=== PATIENT | male | born 1935 | race Caucasian/White ===

== ENCOUNTER → 2019-11-22 17:27 | Outpatient (BNVA) | payer MEDICARE, SELFPAY | PROVIDERS: Family Provider Nurse Practitioner Family; PCP Nurse Practitioner Family; Visit Provider Nurse Practitioner Family | DX: R05 Cough (principal); R35.0 Frequency of micturition | CPT/HCPCS: 71046; 81003 ==

== ENCOUNTER 2021-07-02 17:49 | Emergency (ER) | payer MEDICARE, SELFPAY ==
[2021-07-02 18:05] VITALS: BP 106/70; PULSE 77; RESP 16; TEMP 36.8; O2SAT 95; BMI 22.1
[2021-07-02 18:12] LABS: Glucose Point of Care 141 mg/dL (70-110)
--- NOTE | 2021-07-02 18:55 | ED_ITS ---
HPI - Male Genitourinary General: Chief complaint: Urogenital-Male Stated complaint: HIGH CLAUDETTE P/UC Time Seen by Provider: 07/02/21 18:55 History of Present Illness: HPI Narrative: Mr. Gan is an 86-year-old gentleman with significant past medical history of permanent A. fib on anticoagulation and dementia who presents emergency department due to mental status change. Symptom onset was approximately 2 weeks ago and gradual however more noticeable over the past 3 to 4 days. He mainly has been wandering more and more confused from his baseline. His urine has been variable, he has had low-grade fever, and a episode of watery diarrhea. He denies abdominal pain. History is supplemented by daughter at bedside. He was seen in clinic today and they noted that his urine ketones were elevated, he does not avoid to check blood sugar at home as his meter is broken. History is otherwise limited by patient's baseline mental status. History is provided by daughter at bedside. Review of Systems General: Reports: ROS unobtainable due to mental status PFSH ED PFSH: Medical History BPH (benign prostatic hyperplasia) Dementia Family History Other No pertinent family history Social History Smoking and tobacco status: never smoked Second hand smoke exposure: No Alcohol intake: never Lives independently: No Household members: spouse and children Housing: House Marital status: Current occupational status: retired History of recent travel: No Current gender identity: Male Physical Exam Narrative: EXAM NARRATIVE: GENERAL/CONSTITUTIONAL - well-appearing. No acute distress. Eyes - PERRL, no conjunctival injection ENMT - Atraumatic external nose and ears. Moist mucous membranes NECK - supple. trachea midline CARDIOVASCULAR -irregularly irregular rhythm with controlled rate RESPIRATORY -clear to auscultation bilaterally. No retractions or accessory muscle use. ABDOMEN/GI - Nontender/Nondistended. MSK - Extremities without obvious deformity or tenderness to palpation SKIN - Warm, Dry NEURO - alert and pleasantly disoriented. Moves all extremities equally. PSYCH -impaired memory and cognition Course ED course: - Patient was seen and evaluated by me at bedside - Patient placed on cardiac monitors, IV access obtained - Initial evaluation notable for no acute distress, nontoxic appearance. No focal evidence of infection or other significant abnormality. - Labs notable for mild leukocytosis. Metabolic panel with elevated creatinine with unclear baseline, fluid given. Urinalysis with hematuria but no ketones and no evidence of urinary tract infection - Imaging notable for negative head and chest - Upon serial reexamination after treatment the patient was similar - Based on patient history, evaluation, labs, and imaging as interpreted the most likely cause of the patient's condition is unclear though does not require further inpatient management at this time - The results of ED evaluation were discussed with the patient's family member including prescriptions and/or symptomatic cares (if applicable) including appropriate and responsible use, followup plan, and return precautions. The patient's family member verbalized understanding and felt safe for discharge. - Patient discharged in satisfactory condition. Vital Signs: Vital signs: Vital Signs Temperature 98.3 F 07/02/21 18:05 Pulse Rate 82 07/02/21 22:45 Respiratory Rate 23 H 07/02/21 22:45 Blood Pressure 120/90 07/02/21 22:45 Pulse Oximetry 98 07/02/21 22:45 MDM - Male Medical Records: Attestation: I reviewed the patient's medical records. Lab Data: Attestation: I reviewed the patient's lab results. Labs: Lab Results 07/02/21 07/02/21 07/02/21 18:09 20:12 20:40 WBC 12.2 10^3/uL H 10 ^3/uL (4.0-10.0) RBC 4.78 10^6/uL 10^6 /uL (4.1-5.3) Hgb 14.9 g/dL g/dL (11.7-16.6) Hct 43.9 % % (42.0-52.0) MCV 91.8 fl fl (80-94) MCH 31.2 pg pg (28.0-34.0) MCHC 33.9 g/dL g/dL (30.0-36.0) RDW 13.7 % % (12.1-15.1) Plt Count 224 10^3/cmm 10^3 /cmm (130-400) MPV 10.2 fL fL (7.4-10.4) Neut % (Auto) 72.4 % % Lymph % (Auto) 16.3 % % Pacific % (Auto) 10.6 % % Eos % (Auto) 0.1 % % Baso % (Auto) 0.2 % % Neut # (Auto) 8.83 10^3/uL H 10 ^3/uL (1.8-7.7) Lymph # (Auto) 2.0 10^3/uL 10^3/ uL (0.8-4.8) Pacific # (Auto) 1.3 10^3/uL H 10^ 3/uL (0.2-0.9) Eos # (Auto) 0.0 10^3/uL 10^3/ uL (0.0-0.8) Baso # (Auto) 0.0 10^3/uL 10^3/ uL (0.0-0.1) Nucleated RBC % (a uto) 0 % % Nucleated RBCs # 0.0 /100WBC /100W BC Sodium Potassium Chloride Carbon Dioxide Anion Gap BUN Creatinine GFR Calculation Glucose POC Glucose 141 mg/dL H mg/dL (70-110) Calculated Osmolal ity Calcium Total Bilirubin AST ALT Alkaline Phosphata se Total Protein Albumin Globulin Procalcitonin TSH Urine Color Jazzy (Yellow) Urine Appearance Hazy A (CLEAR) Urine pH 5 (5-7) Ur Specific Gravit y 1.020 (1.005-1.030) Urine Protein 1+ H (Negative) Urine Glucose (UA) Norm (Normal) Urine Ketones Negative (Negative) Urine Blood 3+ H (Negative) Urine Nitrate Negative (Negative) Urine Bilirubin 1+ H (Negative) Urine Urobilinogen 1 mg/dL H mg/dL (Negative) Ur Leukocyte Rosalia ase Trace H (Negative) Urine RBC Too numerous to c nt /hpf H /hpf (0-2) Urine WBC 0-4 /hpf H /hpf (0-5) Ur Squamous Epith Cells 0-4 /hpf H /hpf (0-5) Amorphous Sediment 2+ /hpf /hpf Urine Bacteria Trace /hpf /hpf (NONE) Hyaline Casts 0-4 /lpf H /lpf 07/02/21 07/02/21 20:50 20:50 WBC RBC Hgb Hct MCV MCH MCHC RDW Plt Count MPV Neut % (Auto) Lymph % (Auto) Pacific % (Auto) Eos % (Auto) Baso % (Auto) Neut # (Auto) Lymph # (Auto) Pacific # (Auto) Eos # (Auto) Baso # (Auto) Nucleated RBC % (a uto) Nucleated RBCs # Sodium 136 mmol/L mmol/L (136-145) Potassium 4.5 mmol/L mmol/L (3.5-5.1) Chloride 97 mmol/L L mmol/ L (98-107) Carbon Dioxide 24 mmol/L mmol/L (22-29) Anion Gap 19.5 H (5-19) BUN 27 mg/dL H mg/dL (8-23) Creatinine 1.4 mg/dL H mg/dL (0.7-1.2) GFR Calculation Not Reportable Glucose 132 mg/dL H mg/dL (65-115) POC Glucose Calculated Osmolal ity 289 mOsm/kg mOsm/ kg (285-295) Calcium 9.7 mg/dL mg/dL (8.5-10.5) Total Bilirubin 0.7 mg/dL mg/dL (0.15-1.2) AST 23 U/L U/L (0-40) ALT 12 U/L U/L (0-41) Alkaline Phosphata se 62 IU/L IU/L (40-130) Total Protein 7.2 g/dL g/dL (6.6-8.7) Albumin 4.1 g/dL g/dL (3.5-5.2) Globulin 3.1 g/dL g/dL (1.3-4.6) Procalcitonin 0.10 ng/mL ng/mL (0-0.5) TSH 2.67 uIU/mL uIU/m L (0.27-4.20) Urine Color Urine Appearance Urine pH Ur Specific Gravit y Urine Protein Urine Glucose (UA) Urine Ketones Urine Blood Urine Nitrate Urine Bilirubin Urine Urobilinogen Ur Leukocyte Rosalia ase Urine RBC Urine WBC Ur Squamous Epith Cells Amorphous Sediment Urine Bacteria Hyaline Casts Discharge Plan Discharge Patient Disposition: Home Clinical Impression: Dementia, Hematuria Condition: Stable Prescriptions: No Action diltiazem HCl 60 mg capsule,extended release 12 hr 60 mg PO BID RF: 0 Eliquis 5 mg tablet 5 mg PO BID RF: 0 metformin 1,000 mg tablet 1,000 mg PO BID RF: 0 metoprolol succinate 100 mg tablet extended release 24 hr 100 mg PO DAILY RF: 0 finasteride 5 mg tablet 5 mg PO DAILY RF: 0 Discharge Orders: Discharge ED (Routine); Ordered 07/02/21 Ordered By: Gino Guevara Referrals: Noe Pisano [Primary Care Provider] - Discharge Diet: Usual diet Discharge Activity: Resume usual activity Patient Instructions: Dementia (ED) Activity Restrictions/Additional Instructions: Follow-up with your PCP. Please return the emergency department for anything that you are concerned about and feel needs emergency department evaluation. Coding Level of Care Code ED Eligibility Services Representative for Melani Moody
--- NOTE | 2021-07-02 19:24 | CTR_ITS ---
PROCEDURE INFORMATION: Exam: CT Head Without Contrast Exam date and time: 07/02/2021 7:24 PM Age: 86 years old Clinical indication: Altered mental status/memory loss; Additional info: AMS TECHNIQUE: Imaging protocol: Computed tomography of the head without contrast. Radiation optimization: All CT scans at this facility use at least one of these dose optimization techniques: automated exposure control; mA and/or kV adjustment per patient size (includes targeted exams where dose is matched to clinical indication); or iterative reconstruction. COMPARISON: No relevant prior studies available. RADIATION DOSE METRICS: Total DLP (mGy-cm): 824.41 FINDINGS: Brain: No hemorrhage. Moderate diffuse cerebral atrophy and sequela of chronic small vessel ischemic disease. No mass effect. Cerebral ventricles: No ventriculomegaly. Paranasal sinuses: Visualized sinuses are unremarkable. No fluid levels. Mastoid air cells: Visualized mastoid air cells are well aerated. Bones/joints: Unremarkable. No acute fracture. Soft tissues: Unremarkable. CT/CT head wo con* [id number] IMPRESSION: 1. No acute intracranial abnormality. 2. Moderate diffuse cerebral atrophy and sequela of chronic small vessel ischemic disease. Radiation Dose CTDIVOL = (mGy): DLP = 824.41 (mGy-cm)
--- NOTE | 2021-07-02 19:24 | XRR_ITS ---
PROCEDURE INFORMATION: Exam: XR Chest Exam date and time: 07/02/2021 7:24 PM Age: 86 years old Clinical indication: Other: Weak; Additional info: AMS TECHNIQUE: Imaging protocol: XR of the chest. Views: 1 view. COMPARISON: CR XR chest 2V* [id number] 11/22/2019 5:09 PM FINDINGS: Lungs: Unremarkable. No consolidation. Pleural spaces: Unremarkable. No pleural effusion. No pneumothorax. Heart/Mediastinum: Mild cardiomegaly. Bones/joints: Visualized osseous structures are intact. XR/XR chest 1V portable [id number] IMPRESSION: Mild cardiomegaly. Lungs are clear. Radiation Dose CTDIVOL = (mGy): DLP = (mGy-cm)
[2021-07-02 20:23] LABS: Basophils % 0.2 %; Eosinophils % 0.1 %; Hematocrit 43.9 % (42.0-52.0); Hemoglobin 14.9 g/dL (11.7-16.6); Lymphocytes % 16.3 %; Mean Corpuscular HGB Conc 33.9 g/dL (30.0-36.0); Mean Corpuscular Hemoglobin 31.2 pg (28.0-34.0); Mean Corpuscular Volume 91.8 fl (80-94); Mean Platelet Volume 10.2 fL (7.4-10.4); Monocytes # 1.3 10^3/uL (0.2-0.9); Monocytes % 10.6 %; Neutrophils # 8.83 10^3/uL (1.8-7.7); Neutrophils % 72.4 %; Nucleated Red Blood Cells % 0 %; Platelet Count 224 10^3/cmm (130-400); Red Blood Count 4.78 10^6/uL (4.1-5.3); Red Cell Distribution Width 13.7 % (12.1-15.1); White Blood Count 12.2 10^3/uL (4.0-10.0)
[2021-07-02 20:49] VITALS: BP 183/93; PULSE 112; RESP 18; O2SAT 98
[2021-07-02 21:07] LABS: Add Urine Culture? Yes; Add Urine Microscopic? YES; Amorphous Sediment Urine 2+ /hpf; Bacteria Urine TRACE /hpf; Bilirubin Urine 1+ (Negative); Blood Urine 3+ (Negative); Glucose Urine UA Norm (Normal); Hyaline Casts Urine 0-4 /lpf; Ketones Urine Negative (Negative); Leukocyte Esterase Urine Trace (Negative); Nitrate Urine Negative (Negative); Protein Urine 1+ (Negative); RBC Urine TOO NUMEROUS TO CNT /hpf (0-2); Squamous Epithelial Cell Urine 0-4 /hpf (0-5); Urine Appearance Hazy (CLEAR); Urine Color Amber (Yellow); Urobilinogen Urine 1 mg/dL (Negative); WBC Urine 0-4 /hpf (0-5); pH Urine 5 (5-7)
[2021-07-02 21:27] LABS: Alanine Aminotransferase 12 U/L (0-41); Albumin Level 4.1 g/dL (3.5-5.2); Alkaline Phosphatase 62 IU/L (40-130); Anion Gap 19.5 (5-19); Aspartate Amino Transferase 23 U/L (0-40); Blood Urea Nitrogen 27 mg/dL (8-23); Calcium 9.7 mg/dL (8.5-10.5); Carbon Dioxide 24 mmol/L (22-29); Chloride 97 mmol/L (98-107); Globulin 3.1 g/dL (1.3-4.6); Glucose 132 mg/dL (65-115); Osmolality Calculated 289 mOsm/kg (285-295); Potassium 4.5 mmol/L (3.5-5.1); Sodium 136 mmol/L (136-145); Thyroid Stimulating Hormone 2.67 uIU/mL (0.27-4.20); Total Bilirubin 0.7 mg/dL (0.15-1.2); Total Protein 7.2 g/dL (6.6-8.7)
[2021-07-02] MEDS: sodium chloride 0.9% 500 ML 999 ML IV (21:43)
[2021-07-02 22:04] VITALS: BP 127/90; PULSE 83; RESP 18; O2SAT 95
[2021-07-02 22:45] VITALS: BP 120/90; PULSE 82; RESP 23; O2SAT 98
== END 2021-07-02 22:48 | disposition home or self-care (01) ==
PROVIDERS: Emergency Provider Emergency Medicine; PCP Physician Assistant Medical
DX: F03.90 Unspecified dementia, unspecified severity, without behavioral disturbance, psychotic disturbance, mood disturbance, and anxiety (principal); R31.9 Hematuria, unspecified; Z79.01 Long term (current) use of anticoagulants; Z79.84 Long term (current) use of oral hypoglycemic drugs; N40.0 Benign prostatic hyperplasia without lower urinary tract symptoms
CPT/HCPCS: 36416; 70450; 71045; 80053; 81000; 81001; 82962; 84145; 84443; 85025; 87077; 87086; 87184; 99283; J7040